=== PATIENT | male | born 1950 | race Caucasian/White ===

== ENCOUNTER 2020-10-08 13:38 | Inpatient (IN) | payer MEDICARE, MEDICAID ==
[~2020-10-08] VITALS: Ht 167.6 cm; Wt 72.6 kg
--- NOTE | 2020-10-08 14:13 | Emergency Room Report ---
History of Present Illness General Chief Complaint: Male Urogenital Problems Source: Patient (Morgan Workman) Present Illness HPI 70-year-old male with history of verified Dr. Leon for further evaluation due to dysuria and diffuse abdominal pain x1 week. Patient complains of intermittent hematuria. Complains of few bouts of nonbloody diarrhea. Denies any nausea vomiting, fever and chills, cough and congestion. Has not taken medication for symptom relief. Also complains of dysuria at this time. Abdomen appears to be nonrigid and patient does not have any guarding. Vital signs are within normal limits. Denies being sexually active, denies any penile discharge. 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 COVID-19 Screening: Negative COVID-19 COVID-19 Testing Source: unk (Morgan Workman) Patient History Past Medical History: see triage record Past Surgical History: none Pertinent Family History: none Immunizations: UTD Reviewed Nursing Documentation: PMH: Agreed; PSxH: Agreed (Morgan Workman) Nursing Documentation-PMH Past Medical History: No History, Except For (Morgan Workman) Review of Systems All Other Systems: negative except mentioned in HPI (Morgan Workman) Physical Exam Vital Signs Date Time Temp Pulse Resp B/P (MAP) Pulse Ox O2 Delivery O2 Flow Rate FiO2 10/08/20 13:51 98.6 76 20 136/75 (95) 96 Room Air Sp02 EP Interpretation: reviewed, normal General Appearance: no apparent distress, alert, GCS 15, non-toxic Head: normocephalic, atraumatic Eyes: bilateral eye normal inspection, bilateral eye PERRL ENT: hearing grossly normal, no angioedema, normal voice Neck: full range of motion, no bony tend, supple/symm/no masses Respiratory: no respiratory distress, no retraction, no accessory muscle use Cardiovascular #1: regular rate, rhythm Gastrointestinal: non tender, soft, no mass, no organomegaly, no peritonitis, no bruit, non-distended, no guarding, no pulsatile mass, no rebound Genitourinary: no CVA tenderness Musculoskeletal: back normal Neurologic: alert, motor strength/tone normal, oriented x3, sensory intact, responsive, speech normal Psychiatric: judgement/insight normal, memory normal, mood/affect normal, no suicidal/homicidal ideation Skin: no rash Lymphatic: no adenopathy (Morgan Workman) Medical Decision Making PA Attestation All diagnoses and treatment plans were reviewed and discussed with my supervising physician Dr. Ventura (Morgan Workman) Diagnostic Impression: Primary Impression: Prostatitis Additional Impression: Liver mass ER Course 70-year-old male with history of verified Dr. Leon for further evaluation due to dysuria and diffuse abdominal pain x1 week. Patient complains of intermittent hematuria. Complains of few bouts of nonbloody diarrhea. Denies any nausea vomiting, fever and chills, cough and congestion. Has not taken m edication for symptom relief. Also complains of dysuria at this time. Abdomen appears to be nonrigid and patient does not have any guarding. Vital signs are within normal limits. Denies being sexually active, denies any penile discharge. Ddx considered but are not limited to: UTI, renal stone, prostatitis, BPH, pyelonephritis, urinary incontinence, prolapsed bladder Vital signs: are WNL, pt. is afebrile H&PE are most consistent with: Prostatitis, liver mass ORDERS: UA, urine cx, CBC, CMP, lipase, CT abdomen pelvis noncontrast ED INTERVENTIONS: NS bolus, Rocephin Patient was admitted with diagnosis of prostatitis, liver mass to Dr. Andrews under supervision of Dr.: Ventura pt stable at time of admission (Morgan Workman) ER Course Patient seen and evaluated by DIO Workman I agree with her assessment work-up and treatment plan. Patient agreed to admission. I contacted admitting physician (Jori Ventura MD) CT/MRI/US Diagnostic Results CT/MRI/US Diagnostic Results : Imaging Test Ordered: CT abd/pelvis no contrast Impression Findings: There is a suprapubic catheter in place. This appears to be well positioned. A small amount of fluid is seen within the bladder lumen despite this. There is a cyst in the upper pole of the right kidney. No renal or ureteral calculi, hydronephrosis, nor hydroureter. Lack of IV contrast limits assessment of the other solid organs. Very subtle areas of low-attenuation are seen within the liver, the largest within segment 8 measuring 4.1 cm in diameter other lesions scattered elsewhere in the liver. The gallbladder, bile ducts, pancreas, spleen, adrenals are unremarkable. No retroperitoneal or mesenteric mass or adenopathy. No pelvic mass or adenopathy. The prostate contains calcifications. There are colonic diverticula. No evidence of diverticulitis. The appendix is equal clearly visualized, probably normal. No small bowel distention. No free or loculated intraperitoneal gas or fluid is evident. The distal esophagus, stomach, duodenum are unremarkable. The included lung bases demonstrate some atelectatic changes. There is a pacemaker. The bones demonstrate degenerative spondylosis changes. Impression: Suprapubic catheter in place No findings to explain stated clinical history of dysuria and intermittent hematuria. Multiple low-attenuation liver lesions. Not well demonstrated. Appearance raises concern for metastatic neoplasm, however. Consider further evaluation with contrast CT to better characterize. Colonic diverticulosis. No evidence of diverticulitis Incidental findings of pacemaker, degenerative spondylosis, basilar pulmonary atelectasis, right upper pole renal cyst The CT scanner at [facility] is accredited by the [employer] and the scans are performed using protocols designed to limit radiation exposure to as low as reasonably achievable to attain images of sufficient resolution adequate for diagnostic evaluation. (Morgan Workman) Last Vital Signs Date Time Temp Pulse Resp B/P (MAP) Pulse Ox O2 Delivery O2 Flow Rate FiO2 10/08/20 13:51 98.6 76 20 136/75 (95) 96 Room Air (Morgan Workman) Status: improved (Jori Ventura MD) Disposition: ADMITTED INPATIENT Condition: Serious Morgan Workman Oct 08, 2020 14:13 Jori Ventrua MD Oct 08, 2020 18:55
--- NOTE | 2020-10-08 15:24 | Diagnostic Imaging Report ---
Indication: Dysuria, abdominal pain, intermittent hematuria Technique: Spiral acquisitions obtained through the abdomen and pelvis. No oral contrast utilized, per emergency room physician request No IV contrast utilized, per referring physician request.. Multiplanar reconstructions were generated. Total dose length product 292 mGycm. CTDIvol(s) 5 mGy. Dose reduction achieved using automated exposure control Comparison: None Findings: There is a suprapubic catheter in place. This appears to be well positioned. A small amount of fluid is seen within the bladder lumen despite this. There is a cyst in the upper pole of the right kidney. No renal or ureteral calculi, hydronephrosis, nor hydroureter. Lack of IV contrast limits assessment of the other solid organs. Very subtle areas of low-attenuation are seen within the liver, the largest within segment 8 measuring 4.1 cm in diameter other lesions scattered elsewhere in the liver. The gallbladder, bile ducts, pancreas, spleen, adrenals are unremarkable. No retroperitoneal or mesenteric mass or adenopathy. No pelvic mass or adenopathy. The prostate contains calcifications. There are colonic diverticula. No evidence of diverticulitis. The appendix is equal clearly visualized, probably normal. No small bowel distention. No free or loculated intraperitoneal gas or fluid is evident. The distal esophagus, stomach, duodenum are unremarkable. The included lung bases demonstrate some atelectatic changes. There is a pacemaker. The bones demonstrate degenerative spondylosis changes. Impression: Suprapubic catheter in place No findings to explain stated clinical history of dysuria and intermittent hematuria. Multiple low-attenuation liver lesions. Not well demonstrated. Appearance raises concern for metastatic neoplasm, however. Consider further evaluation with contrast CT to better characterize. Colonic diverticulosis. No evidence of diverticulitis Incidental findings of pacemaker, degenerative spondylosis, basilar pulmonary atelectasis, right upper pole renal cyst The CT scanner at [facility] is accredited by the [employer] and the scans are performed using protocols designed to limit radiation exposure to as low as reasonably achievable to attain images of sufficient resolution adequate for diagnostic evaluation.
--- NOTE | 2020-10-08 15:31 | NUR ---
ED Nurse Note: abd pain x 2 days dx with uti and hasnt started antibiotics yet. no n/v/d. no fever no cough. pt. aaox4. ambulatory
[2020-10-08 15:43] LABS: APPEARANCE,URINE CLOUDY; BILIRUBIN, URINE NEGATIVE (NEGATIVE); GLUCOSE, URINE (UA) NEGATIVE (NEGATIVE); KETONES,URINE NEGATIVE (NEGATIVE); LEUKOCYTE ESTERASE ,URINE 3+ (NEGATIVE); NITRITE,URINE POSITIVE (NEGATIVE); PH,URINE 5 (4.5-8.0); PROTEIN,URINE 3+ (NEGATIVE); UROBILINOGEN,URINE NORMAL MG/DL (0.0-1.0)
[2020-10-08 15:44] LABS: BASOPHILS % (AUTO) 0.9 % (0.0-2.0); EOSINOPHILS % (AUTO) 2.7 % (0.0-3.0); HEMATOCRIT 38.1 % (42.0-52.0); HEMOGLOBIN 13.4 G/DL (14.2-18.0); LYMPHOCYTES % (AUTO) 30.1 % (20.0-45.0); MEAN CORPUSCULAR VOLUME 91 FL (80-99); MONOCYTES % (AUTO) 9.4 % (1.0-10.0); NEUTROPHILS % (AUTO) 56.9 % (45.0-75.0); PLATELET COUNT 171 K/UL (150-450); RED BLOOD COUNT 4.17 M/UL (4.70-6.10); WHITE BLOOD COUNT 5.5 K/UL (4.8-10.8)
[2020-10-08 15:46] LABS: COLOR,URINE YELLOW
[2020-10-08 16:05] LABS: ANION GAP 5 mmol/L (5-15); BLOOD UREA NITROGEN 25 mg/dL (7-18); CALCIUM 8.8 MG/DL (8.5-10.1); CARBON DIOXIDE 32 MMOL/L (21-32); CHLORIDE 108 MMOL/L (98-107); POTASSIUM 4.7 MMOL/L (3.5-5.1); SODIUM 145 MMOL/L (136-145)
[2020-10-08 16:11] LABS: ALANINE AMINOTRANSFERASE 47 U/L (12-78); ALBUMIN 3.5 G/DL (3.4-5.0); ALBUMIN/GLOBULIN RATIO 1.1 (1.0-2.7); ALKALINE PHOSPHATASE 47 U/L (46-116); ASPARTATE AMINO TRANSFERASE 30 U/L (15-37); BILIRUBIN,TOTAL 0.7 MG/DL (0.2-1.0); CREATINE KINASE 123 U/L (26-308)
[2020-10-08] MEDS ORDERED: cefTRIAXone 1 GM in NS 55 ML IVPB ONE (16:30)
[2020-10-08 16:52] VITALS: BP 142/75
[2020-10-08 17:24] LABS: INR 1.1 (0.9-1.1)
[2020-10-08 18:44] VITALS: BP 132/74
--- NOTE | 2020-10-08 18:46 | NUR ---
ED Nurse Note: report given to ileana anthony
--- NOTE | 2020-10-08 18:54 | NUR ---
NURSE NOTES: received report from MEGAN Nicole. awaiting pts arrival on the unit.
[2020-10-08] MEDS ORDERED: NITROFURANTOIN100 M2 ORAL (19:06)
[2020-10-08] MEDS ORDERED: FLOMAX0.4 MG ORAL (19:06)
--- NOTE | 2020-10-08 19:27 | NUR ---
ED Nurse Note: pt. transported to the floor and endorsed patient care to Jesus Puga
[2020-10-08 19:43] VITALS: BP 145/77
--- NOTE | 2020-10-08 19:45 | NUR ---
NURSE NOTES: pt arrived on unit in a wheelchair. alert and oriented x 4 with no acute s/s of distress with 3/10 pain. pt oriented to unit, call light in reach, bed in lowest position. vital signs are stable. suprapubic catheter in place. will call Doctor for admission orders.
[2020-10-08] MEDS ORDERED: URECHOLINE25 MG ORAL (20:33)
[2020-10-08] MEDS ORDERED: HYDROcodone/Acetamin 5/325 tab ORAL PRN (21:30)
[2020-10-08] MEDS: D5 1/2NS 1,000 ML IV SCH (23:58)
[2020-10-09] VITALS (13 sets, daily range): BP systolic 124–177; BP diastolic 54–87
--- NOTE | 2020-10-09 00:30 | NUR ---
NURSE NOTES: vital signs stable, no acute s/s of distress, no co pain at the moment. I notified Dr Andrews that pt did not have chest xray, ekg and covid testing done. awaiting orders if he wants these diagnostics done preop.
--- NOTE | 2020-10-09 04:31 | NUR ---
NURSE NOTES: pt is currently asleep. vital signs are stable and patient is not in any acute distress and does not currently have pain.
[2020-10-09] MEDS ORDERED: ceFAZolin sod 1 GM in D5W 55 ML IVPB SCH (06:30)
--- NOTE | 2020-10-09 07:30 | NUR ---
NURSE HAND-OFF: Important Events on Shift: new admission, preop, Patient Status: stable Diet: NPO Pending Orders: chest xray, EKG, rapid covid Pending Results/Labs:NA Pending MD notification:NA Latest Vital Signs: Temperature 97.7 , Pulse 63 , B/P 124 /71 , Respiratory Rate 15 , O2 SAT 97 , Room Air, O2 Flow Rate . Vital Sign Comment: stable through the shift Latest Belle Fall Score: 35 Fall Risk: Medium Risk Safety Measures: Call light Within Reach, Bed Alarm , Side Rails Side Rails x2, Bed position Low and Locked. Fall Precautions: Patient Fall Education Report given to MEGAN Astudillo.
--- NOTE | 2020-10-09 07:50 | Pre-Procedure Note/Attestation ---
Pre-Procedure Note/Attestation Complete Prior to Procedure Planned Procedure: not applicable Procedure Narrative: TURP Indications for Procedure Pre-Operative Diagnosis: retention Attestation I attest that I discussed the nature of the procedure; its benefits; risks and complications; and alternatives (and the risks and benefits of such alternatives), prior to the procedure, with the patient (or the patient's legal business center representative). I attest that, if there was a reasonable possibility of needing a blood transfusion, the patient (or the patient's legal business center representative) was given the [facility] standardized written summary, pursuant to the [place]onal[place] Blood Safety Act ([place] Health and Safety Code # 1645, as amended). I attest that I re-evaluated the patient just prior to the surgery and that there has been no change in the patient's H&P, except as documented below: Fred Andrews MD Oct 09, 2020 07:50
--- NOTE | 2020-10-09 07:54 | NUR ---
NURSE NOTES: Received report from MEGAN Puga. Pt awake, alert and oriented, able to make needs known. Pt on RA, no acute distress noted, denied pain at this time. Pt on NPO for surgery, however no consent signed, pt has not been explained regarding surgery by surgeon, will follow up. Superpubic cath in place, IV intact and running IVF as ordered. Call light within reach. Will continue to monitor.
[2020-10-09] MEDS: D5 1/2NS 1,000 ML IV SCH (09:17)
--- NOTE | 2020-10-09 12:36 | NUR ---
CASE MANAGEMENT:INITIAL REVIEW 70 YR OLD MALE PRESENTED TO ED FROM HOME CC;MALE UROGENITAL PROBLEMS SI;URINARY RETENTION. PROSTATITIS. LIVER MASS. 98.6 78 21 142/75 96% ON RA CL 108 BUN 25 PT 11.7 UA+ PROTEIN, BLOOD, NITRITE, LEUKOCYTE ESTERASE, RBC, WBC, BACTERIA ABD/PELVIC CT ~ Suprapubic catheter in place No findings to explain stated clinical history of dysuria and intermittent hematuria. Multiple low-attenuation liver lesions. Not well demonstrated. Appearance raises concern for metastatic neoplasm, however. Consider further evaluation with contrast CT to better characterize. IS;ROCEPHIN IV IVF NS BOLUS ADMITTED TO MED SURG MED SURG STATUS DCP;FROM HOME PLAN;TO SURGERY FOR TURP
[2020-10-09] MEDS ORDERED: Labetalol 5mg/ml 20ml vial IV PRN (12:45)
[2020-10-09] MEDS ORDERED: DiphenhydrAMINE 50mg/ml Inj IVP PRN (12:45)
[2020-10-09] MEDS ORDERED: HYDROcodone/Acetamin 5/325 tab ORAL PRN (12:45)
[2020-10-09] MEDS ORDERED: LORazepam Inj 2mg/ml 1ml IV PRN (12:45)
[2020-10-09] MEDS ORDERED: Ketorolac 30mg Inj IV PRN ×2 (12:45)
[2020-10-09] MEDS ORDERED: Metoclopramide 10mg/2ml Inj IVP PRN (12:45)
[2020-10-09] MEDS ORDERED: HYDROcodone/Acetamin 7.5/325 tab ORAL PRN (12:45)
[2020-10-09] MEDS ORDERED: Meperidine 25mg/1ml Inj (FOR RIGORS ONLY) IV PRN (12:45)
[2020-10-09] MEDS ORDERED: Hydromorphone 0.5mg/0.5ml inj IVP PRN (12:45)
[2020-10-09] MEDS ORDERED: Acetaminophen (Non formulary) 100 ML IV ONE (12:45)
[2020-10-09] MEDS ORDERED: oxyCODONE HCL/Acetaminophen 5/325mg ORAL PRN (12:45)
[2020-10-09] MEDS ORDERED: fentaNYL 100 mcg/2 mL IV PRN (12:45)
[2020-10-09] MEDS ORDERED: Atropine Sulfate 0.4mg/ml inj IVP PRN (12:45)
[2020-10-09] MEDS ORDERED: LR 1000ml 1,000 ML IVLG SCH (12:45)
[2020-10-09] MEDS ORDERED: Midazolam 2mg/2ml Inj IVP PRN (12:45)
--- NOTE | 2020-10-09 12:48 | Anethesia Preoperative Eval ---
Anesthesia Pre-op PMH/ROS General Date of Evaluation: Oct 09, 2020 Time of Evaluation: 13:32 Anesthesiologist: Eliazar ASA Score: ASA 3 Mallampati Score Class I : Soft palate, uvula, fauces, pillars visible Class II: Soft palate, uvula, fauces visible Class III: Soft palate, base of uvula visible Class IV: Only hard plate visible Mallampati Classification: Class II Surgeon: Darryl Diagnosis: BPH Surgical Procedure: TURP Anesthesia History: none Family History: no anesthesia problems Allergies: Coded Allergies: No Known Allergies (Unverified , 10/08/20) Medications: see eMAR Patient NPO?: Yes Past Medical History Cardiovascular: Reports: HTN, arrhythmia - Pacemaker Gastrointestinal/Genitourinary: Reports: other - BPH Hematology/Immune: Reports: anemia Anesthesia Pre-op Phys. Exam Physician Exam Last Vital Signs Date Time Temp Pulse Resp B/P (MAP) Pulse Ox O2 Delivery O2 Flow Rate FiO2 10/09/20 12:00 97.7 61 15 150/81 (104) 97 10/09/20 09:00 Room Air Constitutional: NAD Neurologic: CN 2-12 intact Cardiovascular: RRR Respiratory: CTA Gastrointestinal: S/NT/ND Airway Exam Mallampati Score: Class II MO: full ROM: limited Teeth: missing, intact Anesthesia Pre-op A/P Labs Hematology Test 10/08/20 15:23 White Blood Count 5.5 K/UL (4.8-10.8) Red Blood Count 4.17 M/UL (4.70-6.10) L Hemoglobin 13.4 G/DL (14.2-18.0) L Hematocrit 38.1 % (42.0-52.0) L Mean Corpuscular Volume 91 FL (80-99) Mean Corpuscular Hemoglobin 32.0 PG (27.0-31.0) H Mean Corpuscular Hemoglobin Concent 35.0 G/DL (32.0-36.0) Red Cell Distribution Width 12.0 % (11.6-14.8) Platelet Count 171 K/UL (150-450) Mean Platelet Volume 8.4 FL (6.5-10.1) Neutrophils (%) (Auto) 56.9 % (45.0-75.0) Lymphocytes (%) (Auto) 30.1 % (20.0-45.0) Monocytes (%) (Auto) 9.4 % (1.0-10.0) Eosinophils (%) (Auto) 2.7 % (0.0-3.0) Basophils (%) (Auto) 0.9 % (0.0-2.0) Coagulation Test 10/08/20 15:23 Prothrombin Time 11.7 SEC (9.30-11.50) H Prothromb Time International Ratio 1.1 (0.9-1.1) Activated Partial Thromboplast Time 28 SEC (23-33) Chemistry Test 10/08/20 15:23 Sodium Level 145 MMOL/L (136-145) Potassium Level 4.7 MMOL/L (3.5-5.1) Chloride Level 108 MMOL/L (98-107) H Carbon Dioxide Level 32 MMOL/L (21-32) Anion Gap 5 mmol/L (5-15) Blood Urea Nitrogen 25 mg/dL (7-18) H Creatinine 1.0 MG/DL (0.55-1.30) Estimat Glomerular Filtration Rate > 60 mL/min (>60) Glucose Level 89 MG/DL (74-106) Calcium Level 8.8 MG/DL (8.5-10.1) Total Bilirubin 0.7 MG/DL (0.2-1.0) Aspartate Amino Transf (AST/SGOT) 30 U/L (15-37) Alanine Aminotransferase (ALT/SGPT) 47 U/L (12-78) Alkaline Phosphatase 47 U/L (46-116) Total Creatine Kinase 123 U/L (26-308) Total Protein 6.7 G/DL (6.4-8.2) Albumin 3.5 G/DL (3.4-5.0) Globulin 3.2 g/dL Albumin/Globulin Ratio 1.1 (1.0-2.7) Lipase 227 U/L (73-393) Risk Assessment & Plan Assessment: ASA 3 Plan: GA, SED, GlideScope Status Change Before Surgery: No Pre-Antibiotics Dru Gram Ancef IV Given Within 1 Hr of Incision: Yes Time Given: 13:46 Aristides Perea MD Oct 09, 2020 12:48
--- NOTE | 2020-10-09 12:49 | 48 Hour Post Anesthesia Eval ---
Post Anesthesia Evaluation Procedure: TURP Date of Evaluation: Oct 09, 2020 Time of Evaluation: 17:56 Blood Pressure Systolic: 163 0: 78 Pulse Rate: 63 Respiratory Rate: 18 Temperature (Fahrenheit): 98 O2 Sat by Pulse Oximetry: 100 Airway: patent Nausea: No Vomiting: No Pain Intensity: 2 Hydration Status: adequate Cardiopulmonary Status: Stable Mental Status/LOC: patient returned to baseline Follow-up Care/Observations: 0 Post-Anesthesia Complications: 0 Follow-up care needed: ready to discharge Aristides Perea MD Oct 09, 2020 12:49
--- NOTE | 2020-10-09 12:49 | Immediate Post-Op Evaluation ---
Immediate Post-Op Evalulation Immediate Post-Op Evalulation Procedure: TURP Date of Evaluation: Oct 09, 2020 Time of Evaluation: 15:49 IV Fluids: 1300 LR Blood Products: 0 Estimated Blood Loss: 75 Urinary Output: 0 Blood Pressure Systolic: 162 Blood Pressure Diastolic: 85 Pulse Rate: 66 Respiratory Rate: 16 O2 Sat by Pulse Oximetry: 100 Temperature (Fahrenheit): 97.6 Pain Score (1-10): 2 Nausea: No Vomiting: No Complications 0 Patient Status: awake, reacts, patent, extubated, none Hydration Status: adequate Dru Gram Ancef IV Given Within 1 Hr of Incision: Yes Time Given: 13:46 Aristides Perea MD Oct 09, 2020 12:48
--- NOTE | 2020-10-09 13:15 | NUR ---
NURSE NOTES: Pt sent to OR with stable condition
--- NOTE | 2020-10-09 13:20 | Brief Operative Note ---
Immediate Post Operative Note Operative Note Pre-op Diagnosis: retention Procedure: turp change sp tube Post-op Diagnosis: retention Post-op Diagnosis: same as pre-op Surgeon: Umair Andrews Anesthesia: general Specimen: yes Complications: none Condition: stable Fluids: 500 Estimated Blood Loss: none Implant(s) used?: No Fred Andrews MD Oct 09, 2020 13:20
[2020-10-09] MEDS ORDERED: HYDROmorphone 1mg/ml Carpuject IVP PRN (13:30)
[2020-10-09] MEDS ORDERED: LR 1000ml ONE (13:30)
[2020-10-09] MEDS ORDERED: Neostigmine 1mg/ml 10ml Inj ONE (13:30)
[2020-10-09] MEDS ORDERED: Lidocaine 1% MPF 10mg/ml 5ml ONE (13:32)
[2020-10-09] MEDS ORDERED: fentaNYL 100 mcg/2 mL IV ONE (13:33)
[2020-10-09] MEDS ORDERED: Sorbitol 2000ml Irrigation IRRIG ONE (14:11)
[2020-10-09] MEDS ORDERED: Sterile Water Irrig 2000ml IRRIG ONE (14:30)
[2020-10-09] MEDS ORDERED: Glycopyrrolate 0.2mg/ml 1ml Vial ONE (14:37)
[2020-10-09 16:35] LABS: HEMATOCRIT 33.5 % (42.0-52.0); HEMOGLOBIN 11.5 G/DL (14.2-18.0); MEAN CORPUSCULAR VOLUME 92 FL (80-99); PLATELET COUNT 180 K/UL (150-450); RED BLOOD COUNT 3.62 M/UL (4.70-6.10); RED CELL DISTRIBUTION WIDTH 13.4 % (11.6-14.8); WHITE BLOOD COUNT 11.3 K/UL (4.8-10.8)
[2020-10-09 16:36] LABS: BASOPHILS % (AUTO) 0.5 % (0.0-2.0); EOSINOPHILS % (AUTO) 0.9 % (0.0-3.0); LYMPHOCYTES % (AUTO) 9.7 % (20.0-45.0); MONOCYTES % (AUTO) 2.1 % (1.0-10.0); NEUTROPHILS % (AUTO) 86.8 % (45.0-75.0)
[2020-10-09 16:56] LABS: ANION GAP 4 mmol/L (5-15); BLOOD UREA NITROGEN 16 mg/dL (7-18); CALCIUM 7.2 MG/DL (8.5-10.1); CARBON DIOXIDE 26 MMOL/L (21-32); CHLORIDE 97 MMOL/L (98-107); CREATININE 0.8 MG/DL (0.55-1.30); POTASSIUM 4.9 MMOL/L (3.5-5.1); SODIUM 127 MMOL/L (136-145)
[2020-10-09] MEDS: D5 1/2NS w/KCl 20mEq 1,000 ML IV SCH (17:00)
--- NOTE | 2020-10-09 17:05 | Consultation ---
History of Present Illness General Date patient seen: Oct 09, 2020 Reason for Hospitalization: Male Urogenital Problems Present Illness HPI 70-year-old male with history of dysuria and diffuse abdominal pain x1 week. Patient complains of intermittent hematuria. Complains of few bouts of nonbloody diarrhea. Denies any nausea vomiting, fever and chills, cough and congestion. Has not taken medication for symptom relief. Also complains of dysuria at this time. Abdomen appears to be nonrigid and patient does not have any guarding. Vital signs are within normal limits. Denies being sexually active, denies any penile discharge. admitted for care. surgery called to evaluate for abd pain Allergies: Coded Allergies: No Known Allergies (Unverified , 10/08/20) COVID-19 Screening Contact w/high risk pt: No Experienced COVID-19 symptoms?: No Medication History Scheduled Bethanechol Chl (Bethanechol Chloride), 25 MG ORAL DAILY, (Reported) Nitrofurantoin Monohyd/M-Cryst* (Macrobid 100 Mg*), 100 MG ORAL EVERY 12 HOURS, (Reported) Tamsulosin HCl (Flomax), 0.4 MG ORAL DAILY, (Reported) Patient History History Provided By: Patient, Medical Record Healthcare decision maker Resuscitation status Advanced Directive on File Past Medical/Surgical History Past Medical/Surgical History: (1) Liver mass (2) Prostatitis Review of Systems Review of Symptoms General ROS: no weight loss or fever Psychological ROS: no depression or mood changes, no memory loss Ophthalmic ROS: no visual changes or eye irritation ENT ROS: no nasal congestion, hearing loss, dizziness Allergy and Immunology ROS: no allergic symptoms or urticaria Hematological and Lymphatic ROS: no swollen glands, unusual bleeding or bruising Endocrine ROS: no polyuria, polydipsia, weight changes, temperature intolerance Respiratory ROS: no cough, shortness of breath, or wheezing Cardiovascular ROS: no chest pain or dyspnea on exertion Gastrointestinal ROS: + abdominal pain, bright red blood in stool. Musculoskeletal ROS: no myalgias or arthralgias Neurological ROS: no TIA or stroke symptoms Dermatological ROS: no new or changing skin lesions, rashes or pruritis Physical Exam Physical Exam General appearance: alert, cooperative, no distress, appears stated age Head: Normocephalic, without obvious abnormality, atraumatic Eyes: conjunctivae/corneas clear. PERRL, EOM's intact. Fundi benign Throat: Lips, mucosa, and tongue normal. Teeth and gums normal Neck: supple, symmetrical, trachea midline, no adenopathy, thyroid: not enlarged, symmetric, no tenderness/mass/nodules, no carotid bruit and no JVD Lungs: clear to auscultation bilaterally Heart: regular rate and rhythm, S1, S2 normal, no murmur, click, rub or gallop Abdomen: soft, non-tender. Bowel sounds normal. No masses, no organomegaly Extremities: extremities normal, atraumatic, no cyanosis or edema Pulses: 2+ and symmetric Skin: Skin color, texture, turgor normal. No rashes or lesions Neurologic: Grossly normal Last 24 Hour Vital Signs Date Time Temp Pulse Resp B/P (MAP) Pulse Ox O2 Delivery O2 Flow Rate FiO2 10/09/20 16:15 60 17 166/83 97 Simple Mask 6 10/09/20 16:00 60 15 175/87 96 Simple Mask 6 10/09/20 15:40 60 14 177/85 98 Simple Mask 6 10/09/20 15:34 63 18 100 10/09/20 15:33 66 16 100 10/09/20 15:32 97.6 60 16 162/54 100 Simple Mask 6 10/09/20 12:00 97.7 61 15 150/81 (104) 97 10/09/20 09:00 Room Air 10/09/20 08:00 97.9 62 15 149/79 (102) 98 10/09/20 04:00 97.7 63 15 124/71 (88) 97 10/09/20 00:00 98.0 64 17 128/75 (92) 97 10/08/20 22:02 Room Air 10/08/20 19:43 98.4 61 16 145/77 (99) 98 10/08/20 19:27 98.0 65 20 124/75 100 Room Air 10/08/20 18:44 98.2 70 19 132/74 99 Room Air Intake and Output 10/08/20 10/09/20 19:00 07:00 Intake Total 1000 ml Balance 1000 ml Intake Oral 300 ml IV Total 700 ml # Voids 2 Laboratory Tests Test 10/09/20 16:25 White Blood Count 11.3 K/UL (4.8-10.8) #H Red Blood Count 3.62 M/UL (4.70-6.10) L Hemoglobin 11.5 G/DL (14.2-18.0) L Hematocrit 33.5 % (42.0-52.0) L Mean Corpuscular Volume 92 FL (80-99) Mean Corpuscular Hemoglobin 31.8 PG (27.0-31.0) H Mean Corpuscular Hemoglobin Concent 34.4 G/DL (32.0-36.0) Red Cell Distribution Width 13.4 % (11.6-14.8) Platelet Count 180 K/UL (150-450) Mean Platelet Volume 7.3 FL (6.5-10.1) Neutrophils (%) (Auto) 86.8 % (45.0-75.0) H Lymphocytes (%) (Auto) 9.7 % (20.0-45.0) L Monocytes (%) (Auto) 2.1 % (1.0-10.0) Eosinophils (%) (Auto) 0.9 % (0.0-3.0) Basophils (%) (Auto) 0.5 % (0.0-2.0) Sodium Level 127 MMOL/L (136-145) L Potassium Level 4.9 MMOL/L (3.5-5.1) Chloride Level 97 MMOL/L (98-107) L Carbon Dioxide Level 26 MMOL/L (21-32) Anion Gap 4 mmol/L (5-15) L Blood Urea Nitrogen 16 mg/dL (7-18) Creatinine 0.8 MG/DL (0.55-1.30) Estimat Glomerular Filtration Rate > 60 mL/min (>60) Glucose Level 180 MG/DL (74-106) H Calcium Level 7.2 MG/DL (8.5-10.1) L Microbiology Date/Time Source Procedure Growth Status 10/09/20 12:20 Nasopharynx SARS-CoV-2 RdRp Gene Assay - Final Complete Height (Feet): 5 Height (Inches): 6.00 Weight (Pounds): 160 Medications Current Medications Medications (Trade) Dose Ordered Sig/Kirti Route PRN Reason Start Time Stop Time Status Last Admin Dose Admin Acetaminophen (Tylenol) 650 mg Q6H PRN ORAL Mild Pain (Pain Scale 1-3) 10/09/20 13:30 11/08/20 13:29 Acetaminophen/ Hydrocodone Bitart ([place] [facility] 5/325) 1 tab Q1H PRN ORAL Mild Pain (Pain Scale 1-3) 10/09/20 12:45 10/09/20 18:00 Acetaminophen/ Hydrocodone Bitart ([place] 5/325) 1 tab Q4H PRN ORAL pain 4-10 10/08/20 21:30 10/15/20 21:29 Acetaminophen/ Hydrocodone Bitart ([facility] 7.5/325) 1 tab Q1H PRN ORAL Moderate Pain (Pain Scale 4-6) 10/09/20 12:45 10/09/20 18:00 Al Hydroxide/Mg Hydroxide (Mylanta) 15 ml Q1H PRN ORAL gi upset 10/09/20 12:45 10/09/20 18:00 Atropine Sulfate (Atropine 0.4mg/ ml) 0.5 mg Q5M PRN IVP HR<40 10/09/20 12:45 10/09/20 18:00 Cefazolin Sodium 50 ml @ 100 mls/hr Q8H IV 10/09/20 21:30 10/10/20 05:59 Dextrose/ Electrolytes 1,000 ml @ 100 mls/hr Q10H IV 10/09/20 17:00 11/08/20 16:59 Diphenhydramine HCl (Benadryl) 25 mg Q15M PRN IVP Itching 10/09/20 12:45 10/09/20 18:00 Docusate Sodium (Colace) 100 mg TWICE A DAY ORAL 10/09/20 18:00 11/08/20 17:59 Fentanyl Citrate (Sublimaze 100 mcg/2 mL) 25 mcg Q10M PRN IV Moderate Pain (Pain Scale 4-6) 10/09/20 12:45 10/09/20 18:00 Hydralazine HCl (Apresoline) 5 mg Q30M PRN IV SBP>160 / DBP>90 10/09/20 12:45 10/09/20 18:00 Hydromorphone HCl (Dilaudid) 0.5 mg Q15M PRN IVP Severe Pain (Pain Scale 7-10) 10/09/20 12:45 10/09/20 18:00 Hydromorphone HCl (Dilaudid) 1 mg Q3H PRN IVP pain score 4-6 10/09/20 13:30 10/16/20 13:29 Ketorolac Tromethamine (Toradol 30mg) 15 mg Q1H PRN IV Moderate Breakthru Pain (5-7) 10/09/20 12:45 10/09/20 18:00 Ketorolac Tromethamine (Toradol 30mg) 30 mg Q1H PRN IV Severe Breakthru Pain (>7) 10/09/20 12:45 10/09/20 18:00 Labetalol HCl (Normodyne) 5 mg Q10M PRN IV SBP>160 / DBP>90 10/09/20 12:45 10/09/20 18:00 Lorazepam (Ativan 2mg/ml 1ml) 1 mg Q15M PRN IV For Anxiety 10/09/20 12:45 10/09/20 18:00 Meperidine HCl (Demerol) 25 mg Q5M PRN IV SHIVERING.MAY REPEAT X 1 10/09/20 12:45 10/09/20 18:00 10/09/20 16:50 Metoclopramide HCl (Reglan) 10 mg Q1H PRN IVP Nausea & Vomiting 10/09/20 12:45 10/09/20 18:00 Midazolam HCl (Versed 2mg/2ml vial) 1 mg Q15M PRN IVP For Anxiety 10/09/20 12:45 10/09/20 18:00 Ondansetron HCl (Zofran) 4 mg Q1H PRN IVP Nausea & Vomiting 10/09/20 12:45 10/09/20 18:00 Ondansetron HCl (Zofran) 4 mg Q6H PRN IVP Nausea & Vomiting 10/09/20 13:30 11/08/20 13:29 Oxycodone/ Acetaminophen (Percocet 5-325) 1 tab Q1H PRN ORAL Severe Pain (Pain Scale 7-10) 10/09/20 12:45 10/09/20 18:00 Assessment/Plan Problem List: (1) Liver mass Assessment & Plan: concerning multiple lesions currently plan with urology for OR outpatient f/u plan for repeat ct with contrast vs mri here is a suprapubic catheter in place. This appears to be well positioned. A small amount of fluid is seen within the bladder lumen despite this. There is a cyst in the upper pole of the right kidney. No renal or ureteral calculi, hydronephrosis, nor hydroureter. Lack of IV contrast limits assessment of the other solid organs. Very subtle areas of low-attenuation are seen within the liver, the largest within segment 8 measuring 4.1 cm in diameter other lesions scattered elsewhere in the liver. The gallbladder, bile ducts, pancreas, spleen, adrenals are unremarkable. No retroperitoneal or mesenteric mass or adenopathy. No pelvic mass or adenopathy. The prostate contains calcifications. There are colonic diverticula. No evidence of diverticulitis. The appendix is equal clearly visualized, probably normal. No small bowel distention. No free or loculated intraperitoneal gas or fluid is evident. The distal esophagus, stomach, duodenum are unremarkable. The included lung bases demonstrate some atelectatic changes. There is a pacemaker. The bones demonstrate degenerative spondylosis changes. Impression: Suprapubic catheter in place No findings to explain stated clinical history of dysuria and intermittent he maturia. Multiple low-attenuation liver lesions. Not well demonstrated. Appearance raises concern for metastatic neoplasm, however. Consider further evaluation with contrast CT to better characterize. Colonic diverticulosis. No evidence of diverticulitis Incidental findings of pacemaker, degenerative spondylosis, basilar pulmonary atelectasis, right upper pole renal cyst ICD Codes: R16.0 - Hepatomegaly, not elsewhere classified SNOMED: 913606112 (2) Prostatitis Assessment & Plan: abd pain likely related to prostate inflammation urology input noted plan OR pain control okay for diet ICD Codes: N41.9 - Inflammatory disease of prostate, unspecified SNOMED: [id number] Mark Thompson Oct 09, 2020 17:05
--- NOTE | 2020-10-09 17:10 | NUR ---
NURSE NOTES: Pt came back from surgery, received report from MEGAN Gaming. Pt asleep, on NC 2L, breathing even and unlabored. Noted duran draining clear red output and irrigation bag connected to suprapubic catheter for CBI. Vitals stable. Call light within reach. Will continue to monitor.
[2020-10-09] MEDS: Docusate 100mg cap ORAL SCH (18:00)
[2020-10-09] MEDS ORDERED: D5 1/2NS 1000ml IV ONE (18:14)
--- NOTE | 2020-10-09 19:20 | NUR ---
NURSE NOTES: received pt and report from MEGAN Astudillo. pt on CBI and draining sanguineous fluid. IV site clean dry and intact and running fluid as ordered. pt alert and oriented x 4 with no acute distress and no co pain at the moment. plan of care discussed.
--- NOTE | 2020-10-09 19:36 | NUR ---
NURSE HAND-OFF: Important Events on Shift:[Post op, CBI, duran cath] Patient Status: [stable] Diet: [reg] Pending Orders: [] Pending Results/Labs:[] Pending MD notification:[] Latest Vital Signs: Temperature 97.7 , Pulse 60 , B/P 168 /87 , Respiratory Rate 16 , O2 SAT 99 , Nasal Cannula, O2 Flow Rate 3 . Vital Sign Comment: [stable] Latest Belle Fall Score: 35 Fall Risk: Medium Risk Safety Measures: Call light Within Reach, Bed Alarm Zone 1, Side Rails Side Rails x2, Bed position Low and Locked. Fall Precautions: Patient Fall Education Report given to [EddRN].
--- NOTE | 2020-10-09 20:25 | NUR ---
NURSE NOTES: pt vitals stable at the moment. no distress and no co pain. CBI still draining sanguineous fluid.
[2020-10-09] MEDS: ceFAZolin 2gm/50ml Premix 50 ML IV SCH (20:29)
[2020-10-10] VITALS: BP 126/70
--- NOTE | 2020-10-10 00:20 | NUR ---
NURSE NOTES: pt vital signs are stable, no acute distress noted, no co pain. CBI draining and patent with red drainage.
--- NOTE | 2020-10-10 01:44 | NUR ---
NURSE NOTES: pt complaining of heartburn. no med order available. pt understands doctor would need to be notified but he refused to have doctor called. pt offered crackers and cold water and placed in semifowler. pt claims relief after intervention.
[2020-10-10] MEDS: D5 1/2NS w/KCl 20mEq 1,000 ML IV SCH (02:11)
[2020-10-10 03:46] VITALS: BP 118/56
--- NOTE | 2020-10-10 03:55 | NUR ---
NURSE NOTES: pt vital signs stable, no acute distress, no co pain. heartburn resolved with crackers and cold water and elevated hob. CBI still draning red but gradually becoming solid center winder in color.
[2020-10-10] MEDS: ceFAZolin 2gm/50ml Premix 50 ML IV SCH (04:32)
--- NOTE | 2020-10-10 06:12 | NUR ---
NURSE NOTES: pt drainage from CBI with no complications for patency, no clots observed, drainage progressively gets clearer through the shift, output is now pinkish in color compared to the dark/light red at the beginning of shift. pt states no discomfort or pain from the duran.
[2020-10-10 06:34] LABS: BASOPHILS % (AUTO) 0.6 % (0.0-2.0); EOSINOPHILS % (AUTO) 0.1 % (0.0-3.0); HEMOGLOBIN 11.2 G/DL (14.2-18.0); LYMPHOCYTES % (AUTO) 7.5 % (20.0-45.0); MEAN CORPUSCULAR VOLUME 89 FL (80-99); MONOCYTES % (AUTO) 10.5 % (1.0-10.0); NEUTROPHILS % (AUTO) 81.3 % (45.0-75.0); PLATELET COUNT 162 K/UL (150-450); RED BLOOD COUNT 3.46 M/UL (4.70-6.10); WHITE BLOOD COUNT 13.7 K/UL (4.8-10.8)
[2020-10-10 06:47] LABS: CALCIUM 7.7 MG/DL (8.5-10.1); CREATININE 1.5 MG/DL (0.55-1.30); POTASSIUM 4.8 MMOL/L (3.5-5.1)
--- NOTE | 2020-10-10 07:42 | NUR ---
NURSE NOTES: Report received from Edd RN, rounds made. Patient AOx4, calm. Respirations even/unlabored on RA. Suprapubic catheter in place with CBI (NS) infusing without difficulty, FC patent, draining pink/clear urine to drainage bag. Denies pain, SOB, NV. IVF D5 1/2 NS +20 KCL at 100 ml/hr to RAC, site asymptomatic. Call light in reach, bed in lowest position, will continue to monitor.
--- NOTE | 2020-10-10 07:48 | NUR ---
NURSE HAND-OFF: Important Events on Shift:CBI monitoring Patient Status: stab;e Diet: regular Pending Orders: NA Pending Results/Labs:NA Pending MD notification:NA Latest Vital Signs: Temperature 97.8 , Pulse 61 , B/P 118 /56 , Respiratory Rate 16 , O2 SAT 95 , Nasal Cannula, O2 Flow Rate 3 . Vital Sign Comment: stable through the shift Latest Belle Fall Score: 35 Fall Risk: Medium Risk Safety Measures: Call light Within Reach, Bed Alarm Zone 1, Side Rails Side Rails x2, Bed position Low and Locked. Fall Precautions: Patient Fall Education Report given to MEGAN Loaiza.
[2020-10-10 08:00] VITALS: BP 113/67
--- NOTE | 2020-10-10 09:00 | NUR ---
PT EVALUATION NOTE Patient seen for initial evaluation and treatment initiated. Patient presents with impaired functional mobility s/p TURP. Patient able to perform bed mobility with supervision and transfer with SBA. Patient able to ambulate 50 ft with SBA, slightly unsteady however no loss of balance. Ambulation distance limited by c/o fatigue. Patient will benefit from skilled inpatient PT intervention to increase postural stability and endurance for improved level of functional mobility and activity tolerance. Anticipate discharge home once medically cleared by MD. No DME needs identified at this time. Addendum: 10/10/20 at 1249 by SANTIAGO BOYCE PT Amended: Links added.
[2020-10-10] MEDS: Docusate 100mg cap ORAL SCH ×2 (10:40→17:24)
[2020-10-10 12:00] VITALS: BP 113/51
--- NOTE | 2020-10-10 12:56 | Surgery Progress Note ---
Surgery Progress Note Subjective Additional Comments feels better today requiring CBI weaning no n/v/f/c tolerating diet +flatus Objective Last 24 Hour Vital Signs Date Time Temp Pulse Resp B/P (MAP) Pulse Ox O2 Delivery O2 Flow Rate FiO2 10/10/20 08:00 97.9 67 16 113/67 (82) 97 10/10/20 03:46 97.8 61 16 118/56 (76) 95 10/10/20 00:00 98.0 61 18 126/70 (88) 96 10/09/20 21:00 Room Air 10/09/20 20:00 97.5 60 18 142/77 (98) 96 10/09/20 17:10 97.7 60 16 168/87 (114) 99 10/09/20 17:00 97.8 60 15 163/83 97 Nasal Cannula 3 10/09/20 16:45 60 17 169/82 98 Nasal Cannula 3 10/09/20 16:30 60 14 177/86 96 Nasal Cannula 3 10/09/20 16:15 60 17 166/83 97 Simple Mask 6 10/09/20 16:00 60 15 175/87 96 Simple Mask 6 10/09/20 15:40 60 14 177/85 98 Simple Mask 6 10/09/20 15:34 63 18 100 10/09/20 15:33 66 16 100 10/09/20 15:32 97.6 60 16 162/54 100 Simple Mask 6 I&O Intake and Output 10/09/20 10/10/20 19:00 07:00 Intake Total 150 ml 1700 ml Output Total 920 ml 2150 ml Balance -770 ml -450 ml Intake Oral 600 ml IV Total 150 ml 1100 ml Output Urine Total 900 ml 2150 ml Estimated Blood Loss 20 ml Cardiovascular: RSR Respiratory: clear Abdomen: soft, flat, non-tender, present bowel sounds, non-distended Extremities: no edema, no tenderness, no cyanosis Laboratory Tests Test 10/09/20 16:25 10/10/20 05:50 White Blood Count 11.3 K/UL (4.8-10.8) #H 13.7 K/UL (4.8-10.8) H Red Blood Count 3.62 M/UL (4.70-6.10) L 3.46 M/UL (4.70-6.10) L Hemoglobin 11.5 G/DL (14.2-18.0) L 11.2 G/DL (14.2-18.0) L Hematocrit 33.5 % (42.0-52.0) L 31.0 % (42.0-52.0) L Mean Corpuscular Volume 92 FL (80-99) 89 FL (80-99) Mean Corpuscular Hemoglobin 31.8 PG (27.0-31.0) H 32.2 PG (27.0-31.0) H Mean Corpuscular Hemoglobin Concent 34.4 G/DL (32.0-36.0) 36.0 G/DL (32.0-36.0) Red Cell Distribution Width 13.4 % (11.6-14.8) 13.0 % (11.6-14.8) Platelet Count 180 K/UL (150-450) 162 K/UL (150-450) Mean Platelet Volume 7.3 FL (6.5-10.1) 8.5 FL (6.5-10.1) Neutrophils (%) (Auto) 86.8 % (45.0-75.0) H 81.3 % (45.0-75.0) H Lymphocytes (%) (Auto) 9.7 % (20.0-45.0) L 7.5 % (20.0-45.0) L Monocytes (%) (Auto) 2.1 % (1.0-10.0) 10.5 % (1.0-10.0) H Eosinophils (%) (Auto) 0.9 % (0.0-3.0) 0.1 % (0.0-3.0) Basophils (%) (Auto) 0.5 % (0.0-2.0) 0.6 % (0.0-2.0) Sodium Level 127 MMOL/L (136-145) L 132 MMOL/L (136-145) L Potassium Level 4.9 MMOL/L (3.5-5.1) 4.8 MMOL/L (3.5-5.1) Chloride Level 97 MMOL/L (98-107) L 101 MMOL/L (98-107) Carbon Dioxide Level 26 MMOL/L (21-32) 27 MMOL/L (21-32) Anion Gap 4 mmol/L (5-15) L 4 mmol/L (5-15) L Blood Urea Nitrogen 16 mg/dL (7-18) 23 mg/dL (7-18) H Creatinine 0.8 MG/DL (0.55-1.30) 1.5 MG/DL (0.55-1.30) #H Estimat Glomerular Filtration Rate > 60 mL/min (>60) 46.1 mL/min (>60) Glucose Level 180 MG/DL (74-106) H 140 MG/DL (74-106) H Calcium Level 7.2 MG/DL (8.5-10.1) L 7.7 MG/DL (8.5-10.1) L Plan Problems: (1) Liver mass Assessment & Plan: concerning multiple lesions currently plan with urology for OR outpatient f/u plan for repeat ct with contrast vs mri here is a suprapubic catheter in place. This appears to be well positioned. A small amount of fluid is seen within the bladder lumen despite this. There is a cyst in the upper pole of the right kidney. No renal or ureteral calculi, hydronephrosis, nor hydroureter. Lack of IV contrast limits assessment of the other solid organs. Very subtle areas of low-attenuation are seen within the liver, the largest within segment 8 measuring 4.1 cm in diameter other lesions scattered elsewhere in the liver. The gallbladder, bile ducts, pancreas, spleen, adrenals are unremarkable. No retroperitoneal or mesenteric mass or adenopathy. No pelvic mass or adenopathy. The prostate contains calcifications. There are colonic diverticula. No evidence of diverticulitis. The appendix is equal clearly visualized, probably normal. No small bowel distention. No free or loculated intraperitoneal gas or fluid is evident. The distal esophagus, stomach, duodenum are unremarkable. The included lung bases demonstrate some atelectatic changes. There is a pacemaker. The bones demonstrate degenerative spondylosis changes. Impression: Suprapubic catheter in place No findings to explain stated clinical history of dysuria and intermittent hematuria. Multiple low-attenuation liver lesions. Not well demonstrated. Appearance raises concern for metastatic neoplasm, however. Consider further evaluation with contr ast CT to better characterize. Colonic diverticulosis. No evidence of diverticulitis Incidental findings of pacemaker, degenerative spondylosis, basilar pulmonary atelectasis, right upper pole renal cyst (2) Prostatitis Assessment & Plan: abd pain likely related to prostate inflammation urology input noted plan OR pain control okay for diet Mark Thompson Oct 10, 2020 12:56
--- NOTE | 2020-10-10 15:19 | NUR ---
CASE MANAGEMENT:REVIEW 10/10/20 SI:POD #1 S/P TURP 98.3 68 16 113/51 98% ON RA WBC+13.7 H/H-11.2/31.0 NA-132 BUN+23 CR+1.5 CA-7.7 IS: IV ANCEF Q8HRS IVF@100/HR : MED/SURG STATUS 3 EAST PLAN: SLOWLY WEAN CBI URINE CLEARS PT EVAL
[2020-10-10 16:00] VITALS: BP 135/63
--- NOTE | 2020-10-10 18:45 | NUR ---
NURSE NOTES: FC noted with yellow, clear urine at this time, CBI flow slowed down, to wean as ordered.
--- NOTE | 2020-10-10 19:15 | NUR ---
NURSE NOTES: Received report from MEGAN Loaiza. Pt is awake and calm in bed. Urine is yellow. Bed in lowest position, side rails up x2, call light within reach. Patient stated that he is able to ambulate to the restroom. Will continue to monitor.
--- NOTE | 2020-10-10 19:25 | NUR ---
NURSE HAND-OFF: Important Events on Shift:CBI flow slowed down (beginning to wean down as ordered, urine noted yellow clear at 1845), RX in chart (possible dc 10/11?) Patient Status: stable Diet: regular Pending Orders: labs AM Pending Results/Labs:CBC CMP 10/11 Pending MD notification:none Latest Vital Signs: Temperature 99.3 , Pulse 91 , B/P 135 /63 , Respiratory Rate 16 , O2 SAT 95 , Nasal Cannula, O2 Flow Rate 3 . Vital Sign Comment: none Latest Belle Fall Score: 35 Fall Risk: Medium Risk Safety Measures: Call light Within Reach, Bed Alarm Zone 1, Side Rails Side Rails x2, Bed position Low and Locked. Fall Precautions: Yellow Socks Yellow Gown Door Sign Patient Fall Education Report given to Dylon GUZMAN.
[2020-10-10 20:00] VITALS: BP 142/60
[2020-10-11] VITALS: BP 139/67
[2020-10-11 04:00] VITALS: BP 154/72
[2020-10-11 06:39] LABS: BASOPHILS % (AUTO) 0.4 % (0.0-2.0); EOSINOPHILS % (AUTO) 1.7 % (0.0-3.0); HEMATOCRIT 30.7 % (42.0-52.0); HEMOGLOBIN 10.6 G/DL (14.2-18.0); MEAN CORPUSCULAR VOLUME 91 FL (80-99); MONOCYTES % (AUTO) 13.4 % (1.0-10.0); NEUTROPHILS % (AUTO) 64.6 % (45.0-75.0); PLATELET COUNT 135 K/UL (150-450); RED BLOOD COUNT 3.38 M/UL (4.70-6.10); RED CELL DISTRIBUTION WIDTH 12.8 % (11.6-14.8); WHITE BLOOD COUNT 8.1 K/UL (4.8-10.8)
[2020-10-11 06:59] LABS: ALBUMIN 2.9 G/DL (3.4-5.0); BILIRUBIN,TOTAL 0.7 MG/DL (0.2-1.0); CALCIUM 8.5 MG/DL (8.5-10.1); CREATININE 1.3 MG/DL (0.55-1.30); POTASSIUM 4.4 MMOL/L (3.5-5.1)
--- NOTE | 2020-10-11 07:14 | NUR ---
NURSE HAND-OFF: Important Events on Shift: Urine color was yellow at beginning of shift and turned pink Patient Status: sleeping Diet: regular Pending Orders: Pending Results/Labs: Pending MD notification: Latest Vital Signs: Temperature 98.3 , Pulse 81 , B/P 154 /72 , Respiratory Rate 16 , O2 SAT 96 , Nasal Cannula, O2 Flow Rate 3 . Vital Sign Comment: VSS Latest Belle Fall Score: 35 Fall Risk: Medium Risk Safety Measures: Call light Within Reach, Bed Alarm Zone 1, Side Rails Side Rails x2, Bed position Low and Locked. Fall Precautions: Yellow Socks Yellow Gown Door Sign Patient Fall Education Report given to MEGAN Tam.
--- NOTE | 2020-10-11 07:20 | NUR ---
NURSE NOTES: Received report from MEGAN Osborne. Rounding done. Pt a/o x 5, having breakfast. Denies any pain at this time. Pt has suprapubic cath for CBI and duran catheter. Urine color is pinkish. Rt AC is in placed. Bed in lowest position, call light within reach. Will continue to monitor.
[2020-10-11 08:00] VITALS: BP 136/70
[2020-10-11] MEDS: Docusate 100mg cap ORAL SCH ×2 (09:04→17:04)
[2020-10-11 12:00] VITALS: BP 144/75
--- NOTE | 2020-10-11 13:03 | NUR ---
CASE MANAGEMENT:REVIEW SI:PROSTATITIS. POD #2 S/P TURP 98.8 81 16 154/72 95% ON RA H/H- 10.6/30.7 CL+ 112 BUN+ 23 ALB- 2.9 IS;COLACE PO BID CBI (CONTINUOUS BLADDER IRRIGATION) MED SURG STATUS DCP;PATIENT IS FROM HOME PLAN;WEAN CBI
--- NOTE | 2020-10-11 14:31 | NUR ---
NURSE NOTES: Dr. Andrews called and ordered discharge home with home health. Dr. Andrews said he already arranged home health. Addendum: 10/11/20 at 1857 by Saida Bingham RN ADDENDUM Dr. Andrews ordered 1. change duran catheter to leg bag 2. clamped suprapubic catheter. Noted and carried out.
--- NOTE | 2020-10-11 15:30 | NUR ---
NURSE NOTES: Dr. Thompson came and reconciles home meds. MD ordered continue home meds including d/c meds.
[2020-10-11 16:00] VITALS: BP 159/82
[2020-10-11] MEDS ORDERED: COLACE100 MG ORAL (16:10)
[2020-10-11] MEDS ORDERED: LEVOFLOXAC250 MG/10 PO (16:10)
[2020-10-11] MEDS ORDERED: ACETAMINOPHEN-1 EAC1 ORAL (16:11)
--- NOTE | 2020-10-11 16:52 | Surgery Progress Note ---
Surgery Progress Note Subjective Symptoms: improved, tolerating diet, voiding well, passing flatus, pain decreased Objective Last 24 Hour Vital Signs Date Time Temp Pulse Resp B/P (MAP) Pulse Ox O2 Delivery O2 Flow Rate FiO2 10/11/20 16:00 97.5 71 16 159/82 (107) 97 10/11/20 12:00 98.6 77 16 144/75 (98) 95 10/11/20 09:00 Room Air 10/11/20 08:00 97.9 76 16 136/70 (92) 95 10/11/20 04:00 98.3 81 16 154/72 (99) 96 10/11/20 00:00 98.8 81 18 139/67 (91) 95 10/10/20 21:00 Room Air 10/10/20 20:00 99.1 85 18 142/60 (87) 96 I&O Intake and Output 10/10/20 10/11/20 19:00 07:00 Intake Total 1700 ml 350 ml Output Total 3100 ml 5500 ml Balance -1400 ml -5150 ml Intake Oral 1200 ml 350 ml IV Total 500 ml Output Urine Total 3100 ml 5500 ml Cardiovascular: RSR Respiratory: clear Abdomen: soft, non-tender, present bowel sounds, non-distended Extremities: no edema, no tenderness, no cyanosis Laboratory Tests Test 10/11/20 05:50 White Blood Count 8.1 K/UL (4.8-10.8) Red Blood Count 3.38 M/UL (4.70-6.10) L Hemoglobin 10.6 G/DL (14.2-18.0) L Hematocrit 30.7 % (42.0-52.0) L Mean Corpuscular Volume 91 FL (80-99) Mean Corpuscular Hemoglobin 31.3 PG (27.0-31.0) H Mean Corpuscular Hemoglobin Concent 34.4 G/DL (32.0-36.0) Red Cell Distribution Width 12.8 % (11.6-14.8) Platelet Count 135 K/UL (150-450) L Mean Platelet Volume 8.1 FL (6.5-10.1) Neutrophils (%) (Auto) 64.6 % (45.0-75.0) Lymphocytes (%) (Auto) 20.0 % (20.0-45.0) Monocytes (%) (Auto) 13.4 % (1.0-10.0) H Eosinophils (%) (Auto) 1.7 % (0.0-3.0) Basophils (%) (Auto) 0.4 % (0.0-2.0) Sodium Level 144 MMOL/L (136-145) # Potassium Level 4.4 MMOL/L (3.5-5.1) Chloride Level 112 MMOL/L (98-107) H Carbon Dioxide Level 30 MMOL/L (21-32) Anion Gap 2 mmol/L (5-15) L Blood Urea Nitrogen 23 mg/dL (7-18) H Creatinine 1.3 MG/DL (0.55-1.30) Estimat Glomerular Filtration Rate 54.4 mL/min (>60) Glucose Level 106 MG/DL (74-106) Calcium Level 8.5 MG/DL (8.5-10.1) Total Bilirubin 0.7 MG/DL (0.2-1.0) Aspartate Amino Transf (AST/SGOT) 35 U/L (15-37) Alanine Aminotransferase (ALT/SGPT) 29 U/L (12-78) Alkaline Phosphatase 41 U/L (46-116) L Total Protein 5.7 G/DL (6.4-8.2) L Albumin 2.9 G/DL (3.4-5.0) L Globulin 2.8 g/dL Albumin/Globulin Ratio 1.0 (1.0-2.7) Plan Problems: (1) Liver mass Assessment & Plan: concerning multiple lesions currently plan with urology for OR outpatient f/u plan for repeat ct with contrast vs mri here is a suprapubic catheter in place. This appears to be well positioned. A small amount of fluid is seen within the bladder lumen despite this. There is a cyst in the upper pole of the right kidney. No renal or ureteral calculi, hydronephrosis, nor hydroureter. Lack of IV contrast limits assessment of the other solid organs. Very subtle areas of low-attenuation are seen within the liver, the largest within segment 8 measuring 4.1 cm in diameter other lesions scattered elsewhere in the liver. The gallbladder, bile ducts, pancreas, spleen, adrenals are unremarkable. No retroperitoneal or mesenteric mass or adenopathy. No pelvic mass or adenopathy. The prostate contains calcifications. There are colonic diverticula. No evidence of diverticulitis. The appendix is equal clearly visualized, probably normal. No small bowel distention. No free or loculated intraperitoneal gas or fluid is evident. The distal esophagus, stomach, duodenum are unremarkable. The included lung bases demonstrate some atelectatic changes. There is a pacemaker. The bones demonstrate degenerative spondylosis changes. Impression: Suprapubic catheter in place No findings to explain stated clinical history of dysuria and intermittent hem aturia. Multiple low-attenuation liver lesions. Not well demonstrated. Appearance raises concern for metastatic neoplasm, however. Consider further evaluation with contrast CT to better characterize. Colonic diverticulosis. No evidence of diverticulitis Incidental findings of pacemaker, degenerative spondylosis, basilar pulmonary atelectasis, right upper pole renal cyst (2) Prostatitis Assessment & Plan: abd pain likely related to prostate inflammation urology input noted plan OR pain control okay for diet walking well with pt comfortable d/c plan today leg bag meds reviewed rx written instructions given dc planning cap suprapubic done Mark Thompson Oct 11, 2020 16:52
--- NOTE | 2020-10-11 18:00 | NUR ---
NURSE NOTES: For CBI intake: 4000ml output: 5700ml
--- NOTE | 2020-10-11 18:20 | NUR ---
NURSE NOTES: Discharge instruction was given including prescription. Gonzales catheter was changed to leg beg and suprapubic catheter was clamped. ID/IV removed. Pt escorted by RN. Pt discharged in stable condition.
--- NOTE | 2020-10-13 12:13 | Discharge Summary ---
Discharge Summary Discharge Summary _ Date of admission: 10/08/2020 Date of discharge: 10/11/[address] Andrews History of Present Illness and Brief Hospital Course Mr. Infante is a 70-year-old male with history of BPH, who presented to the ED for evaluation of dysuria and diffuse abdominal pain x1 week. He also complained of intermittent hematuria and nonbloody diarrhea. Patient was provided with IV fluid and Rocephin and was admitted to the hospital for further management. A CT of abdomen/pelvis without contrast revealed multiple low-attenuation liver lesions. The appearance raised concern for metastatic neoplasm and further evaluation with contrast CT was warranted. Colonic diverticulosis was also found without evidence of diverticulitis. He is to follow-up for repeat CT with contrast versus MRI as an outpatient for further evaluation of previously demonstrated multiple low-attenuation liver lesions. His abdominal pain was likely related to prostate inflammation. Patient agreed to go through with TURP procedure for urinary retention. Nature of the procedure, benefits, risks and complications, and alternatives were discussed with the patient prior to the procedure. Patient tolerated the procedure well. He began to tolerate diet, void well, and pass flatus. Patient was medically stable for discharge back to home with home health. Consultants: Surgery Dr. Thompson Discharge Condition Improved and stable Discharge Activity Advance as tolerated Final diagnoses Liver mass Prostatitis History of BPH I have been assigned to dictate discharge summary for this account. I was not involved in the patient's management Murphy Castano Oct 13, 2020 12:13
--- NOTE | 2020-10-14 15:44 | Operative Note - Dictated ---
DATE OF OPERATION: 10/09/2020 PREOPERATIVE DIAGNOSES: Chronic urinary retention, neurogenic atonic bladder. POSTOPERATIVE DIAGNOSES: Chronic urinary retention, neurogenic atonic bladder. OPERATIONS: Cystoscopy, transurethral resection of the prostate, and change of the suprapubic tube. JANITORIAL SUPERVISOR: Fred Andrews M.D. ANESTHESIA: General. FINDINGS: Obstructive prostate. INDICATIONS FOR SURGERY: The patient had chronic urinary retention with 2 liters of urine in the bladder, had suprapubic tube placed and trial of oral medications, which he failed. Treatment options were explained to him in great length including all potential complications. He understands the nature of the procedure and signed the consent. DESCRIPTION OF SURGERY: He was brought to the operating room, placed in the lithotomy position, prepped and draped in standard fashion. Under general anesthesia, the resectoscope was introduced into the bladder was performed all the way to the capsule of the prostate. Chips were evacuated with the Emergent One evacuator. Fulguration with electrocautery. Gonzales catheter, 22-Tog[place]ese, was placed and the suprapubic tube was exchanged for an 18-Tog[place]ese Gonzales catheter. The bladder was irrigated. The patient tolerated the procedure well. No evidence of complications. Fred Andrews M.D. DR: KENY JOB#: [id number] CC:
== END 2020-10-11 18:20 | disposition home health service (06) | DRG 482 ==
LOC: EDBD 13:38 → EMR 14:26 → 3E 17:08 → EDBEDREQ 18:01
PROC: 0VT08ZZ Resection of Prostate, Via Natural or Artificial Opening Endoscopic (ICD-10-PCS; principal; 2020-10-09 15:00)
DX: N40.1 Benign prostatic hyperplasia with lower urinary tract symptoms (principal); N41.9 Inflammatory disease of prostate, unspecified; I10 Essential (primary) hypertension; R16.0 Hepatomegaly, not elsewhere classified; R33.8 Other retention of urine; N31.9 Neuromuscular dysfunction of bladder, unspecified
CPT/HCPCS: 36415; 74176; 80048; 80053; 81003; 82550; 83690; 85025; 85610; 85730; 86850; 86900; 86901; 87086; 94003; 94150; 96365; 99285; J2180; J2405; J2710; J7030; U0002